=== PATIENT | male | born 1945 | race Caucasian/White ===

== ENCOUNTER → 2016-07-04 | Outpatient (CLI) | payer OTHER | LOC: MMPC 09:00 | PROVIDERS: ATTEND Family Medicine | DX: I10 Essential (primary) hypertension (principal); E78.00 Pure hypercholesterolemia, unspecified; E66.3 Overweight; R73.9 Hyperglycemia, unspecified | CPT/HCPCS: 99213; G0463 ==

== ENCOUNTER → 2017-01-01 | Outpatient (CLI) | payer OTHER ==
[2017-01-01 11:14] LABS: HEMATOCRIT 47.8 % (42.0-52.0); HEMOGLOBIN 16.2 g/dL (14.0-18.0); MEAN CORPUSCULAR HEMOGLOBIN 29.9 PG (27-31); MEAN CORPUSCULAR HGB CONC 33.9 g/dL (33-37); MEAN CORPUSCULAR VOLUME 88.4 FL (80-90); MEAN PLATELET VOLUME 10.1 FL (7.4-12.2); RED BLOOD COUNT 5.41 10^6/uL (4.70-6.10)
[2017-01-01 11:22] LABS: BUN/CREATININE RATIO 14.54 (6-20); CALCIUM 9.8 mg/dL (8.7-10.7); CHOL/HDL RATIO 4.8 RATIO (0-4.0); LDL CHOLESTEROL,CALCULATED 84.6 mg/dL; SERUM ALBUMIN 3.7 g/dL (3.5-4.8)
== END ==
LOC: MOB LAB 08:01
PROVIDERS: ATTEND Family Medicine
DX: I10 Essential (primary) hypertension (principal); E78.00 Pure hypercholesterolemia, unspecified; R73.9 Hyperglycemia, unspecified
CPT/HCPCS: 36415; 80053; 80061; 85027